=== PATIENT | male | born 1990 | race Two or more races ===

== ENCOUNTER 2020-10-12 17:40 | Emergency (ER) | payer OTHER ==
[~2020-10-12] VITALS: Ht 175.3 cm; Wt 99.8 kg
[2020-10-12 18:48] LABS: Basophils # (auto) 0 10 ^3/uL (0-0.2); Basophils % (auto) 0.5 % (0.0-2.0); Eosinophils # (auto) 0.2 10 ^3/uL (0-0.8); Eosinophils % (auto) 2.8 % (0.0-7.0); Hematocrit 42.3 % (41.0-53.0); Hemoglobin 14.7 g/dL (13.5-17.5); Lymphocytes # (auto) 2.7 10 ^3/uL (0.4-5.4); Lymphocytes % (auto) 33.5 % (10.0-50.0); Mean Corpuscular Hgb Conc. 34.8 g/dL (32.0-36.0); Mean Corpuscular Volume 86.2 fL (80.0-100.0); Monocytes # (auto) 0.6 10 ^3/uL (0-1.3); Monocytes % (auto) 7.5 % (0.0-12.0); Neutrophils # (auto) 4.4 10 ^3/uL (1.6-8.6); Neutrophils % (auto) 55.7 % (37.0-80.0); Nucleated Red Blood Cells % 0.1 %; Platelet Count (auto) 274 10^3/uL (140-450); Red Cell Distribution Width 12.8 % (11.8-14.3); White Blood Cell 7.9 10^3/uL (4.4-10.8)
[2020-10-12 19:04] LABS: Anion Gap 9 (5-15); Blood Urea Nitrogen 14 mg/dL (7-18); Calcium 8.6 mg/dL (8.5-10.1); Carbon Dioxide 26 mmol/L (21-32); Chloride 103 mmol/L (98-107); Glucose 89 mg/dL (74-106); Potassium 3.7 mmol/L (3.5-5.1); Sodium 138 mmol/L (136-145)
[2020-10-12 19:07] LABS: Alanine Aminotransferase 88 U/L (16-61); Aspartate Aminotransferase 33 U/L (15-37); BUN/Creatinine Ratio 17.1; GFR African American 143 mL/min; GFR Non-African American 118 mL/min
[2020-10-12 19:09] LABS: INR 1.02 (0.9-1.15); Partial Thromboplastin Time 30.3 sec (23.0-31.2)
[2020-10-12 19:10] LABS: Alkaline Phosphatase 107 U/L (45-117); Bilirubin, Total 0.3 mg/dL (0.2-1.0); Total Protein 8.2 g/dL (6.4-8.2)
[2020-10-12] MEDS ORDERED: ASPirin-EC 81 mg tab PO ONE (21:45)
[2020-10-12 22:18] LABS: Amphetamine Screen, Urine NEGATIVE (NEGATIVE); Barbiturate Scree,Urine NEGATIVE (NEGATIVE); Benzodiazephine Screen, Urine NEGATIVE (NEGATIVE); Cannabinoid Screen, Urine NEGATIVE (NEGATIVE); Cocaine Screen, Urine NEGATIVE (NEGATIVE); Opiate Scree,Urine NEGATIVE (NEGATIVE); Phencyclidine Screen, Urine NEGATIVE (NEGATIVE)
[2020-10-12 22:30] VITALS: BP 123/86
== END 2020-10-12 22:51 | disposition home or self-care (01) ==
LOC: ER 17:40
DX: R00.2 Palpitations (principal); R07.89 Other chest pain
CPT/HCPCS: 36415; 71046; 80053; 80307; 83735; 84484; 85025; 85379; 85610; 85730; 93005